=== PATIENT | female | born 1965 | race Caucasian/White ===

== ENCOUNTER → 2019-11-10 | Outpatient (CLI) | payer OTHER, SELFPAY ==
--- NOTE | 2019-11-10 16:48 | CT_ITS ---
STUDY: CT ABDOMEN AND PELVIS WITHOUT CONTRAST REASON FOR EXAM: Female, 54 years old. RT FLANK PAIN. Hx of kidney stones with basket extraction and lithotripsy. Prior cholecystectomy and uterine ablation RADIATION DOSAGE (If Supplied By Facility): CTDIvol = ( 13.31 ) mGy, DLP = ( 616.19 ) mGycm TECHNIQUE: Transaxial images were obtained from the dome of the diaphragm to the symphysis pubis without oral contrast, and without intravenous contrast. Sagittal and coronal images were reconstructed. Individualized dose optimization techniques were used for this CT. COMPARISON: None. FINDINGS: The visualized lung bases are unremarkable. The visualized portions of the heart are within normal limits. No hepatic masses There are surgical clips in the gallbladder fossa consistent with a prior cholecystectomy. There are multiple benign calcified granulomata of the spleen and liver. Normal pancreas. Normal bilateral adrenal glands. Normal right kidney. There are 2 punctate calcifications of the left kidney (image 45, 48 of series 1002) measuring 1-2 mm. No ureteral calculi. No hydronephrosis. Normal visualized stomach. Normal small intestine. There are multiple colonic diverticula consistent with diverticulosis. There is non-visualization of the appendix. Normal abdominal aorta. Normal inferior vena cava. Normal retroperitoneum. Nondistended urinary bladder. Normal visualized uterus. Normal abdominal wall. Normal osseous structures. CT/Abdomen/Pelvis without Cont IMPRESSION: 1. Punctate left nephrolithiasis without hydronephrosis or ureteral calculi. 2. Additional chronic changes, none of which require additional imaging follow-up, as above Electronically Signed: Kin Smith MD (Brooks) at 16:01 EDT , Service support ,
== END | disposition home or self-care (01) ==
LOC: CT 16:45
PROVIDERS: PCP Family Medicine; Referring Provider Urology; Visit Provider Urology
DX: N20.0 Calculus of kidney (principal); R10.9 Unspecified abdominal pain
CPT/HCPCS: 74176

== ENCOUNTER → 2022-09-11 | Outpatient (CLI) | payer OTHER, SELFPAY ==
--- NOTE | 2022-09-11 16:11 | US_ITS ---
STUDY: RENAL ULTRASOUND - COMPLETE REASON FOR EXAM: Female, 57 years old. Pelviectasis. No hydronephrosis. TECHNIQUE: Ultrasound evaluation of the kidneys was performed with real-time and static miller-scale imaging. COMPARISON: CT of the abdomen and pelvis, November 10, 2019. FINDINGS: RIGHT KIDNEY: Normal location of the right kidney, which is normal in size. The right kidney measures 11.3 cm. There is a normal cortex of the right kidney. The renal cortex measures 1.1 cm. There is no right renal mass or cyst. There are no right renal calculi. There is no right hydronephrosis. DISTAL RIGHT URETER: There is non-visualization of the distal right ureter. There is no demonstrated right ureterovesical junction calculus. There is no demonstrated right ureteral jet. LEFT KIDNEY: Normal location of the left kidney, which is normal in size. The left kidney measures 10.7 cm. There is a normal cortex of the left kidney. The renal cortex measures 1.1 cm. There is a parapelvic cyst measuring 1.1 x 1.7 x 1.3 cm. There are no left renal calculi. There is no left hydronephrosis. DISTAL LEFT URETER: There is non-visualization of the distal left ureter. There is no demonstrated left ureterovesical junction calculus. There is a visualized left ureteral jet. BLADDER: The distended urinary bladder has a volume of 60 ml. There is a normal wall thickness of the distended urinary bladder. There is no demonstrated mass within the urinary bladder. There are no demonstrated bladder calculi. US/Kidney and Bladder IMPRESSION: 1. Left parapelvic renal cyst. 2. Otherwise normal retroperitoneal ultrasound. Electronically Signed: Alfredo Brennan DO at 22:50 EST ,
== END | disposition home or self-care (01) ==
LOC: US 16:06
PROVIDERS: PCP Family Medicine; Referring Provider Urology; Visit Provider Urology
DX: N28.1 Cyst of kidney, acquired (principal); N13.30 Unspecified hydronephrosis
CPT/HCPCS: 76770

== ENCOUNTER 2025-08-09 09:11 | Day surgery (SDC) | payer OTHER, SELFPAY ==
--- NOTE | 2025-08-06 16:26 | PAT.ANE_ITS ---
Pre-Assessment Diagnosis/Proposed Procedure Planned Operative Procedure(s): CYSTO, URETEROSCOPY, LASER LITHO, STONE BASKET, LEFT STENT INSERTION Anesthesia History Anesthesia History - weatherization administrator: Anesthesia History - weatherization administrator Hx Hospitalization No 08/06/25 11:51 Any Problems With Anesthesia No 08/06/25 11:51 Cholinesterase deficiency No 08/06/25 11:51 You/Your Family Experience No 08/06/25 11:51 fever (hyperthermia) with Relationship Recent Exposure to Contagious Disease Does patient have nerve No 08/06/25 11:51 stimulator Patient instructed to have device shut off --Does patient have Pacemaker or ICD? When Was Last Pacemaker Check QUESTION #4 FULL TEXT: You/Your Family Experience fever (hyperthermia) with Anesthesia Last Oral Intake Last Oral intake: Last Oral Intake NPO since Meds taken in AM with sips of water? Meds patient instructed to take am of surgery PONV PONV - weatherization administrator: PONV - weatherization administrator Female Yes 08/06/25 11:51 HX of Motion Sickness Yes 08/06/25 11:51 HX of N/V After Surgery Yes 08/06/25 11:51 Non-Smoker Yes 08/06/25 11:51 Duration of Surgery greater No 08/06/25 11:51 than 60 minutes Number of Risk Factors 4 08/06/25 11:51 PONV Score Severe Risk 08/06/25 11:51 Height & Weight Height & Weight: Anesthesia: Height & Weight Height 5 ft 3 in 08/01/25 15:49 Respiratory Assessment Respiratory Assessment - weatherization administrator: Respiratory Tract Infection Hx - weatherization administrator Hx Respiratory Tract Infection No 08/06/25 11:51 STOP Sleep Apnea STOP Sleep Apnea - weatherization administrator: STOP Sleep Apnea - weatherization administrator Hx Hypertension No 08/06/25 11:51 Hx Sleep Apnea No 08/06/25 11:51 CPAP BIPAP Do you snore loudly (louder No 08/06/25 11:51 than talking or can be heard Do you often feel tired/ No 08/06/25 11:51 fatigued/ sleepy during daytime? Has anyone observed you stop No 08/06/25 11:51 breathing during sleep? STOP Results Negative 08/06/25 11:51 QUESTION #5 FULL TEXT : Do you snore loudly (louder than talking or can be heard through closed doors)? 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 Specify any problems Hx of Preganancy in last 3 No 08/06/25 11:51 Months Nurse Filling Out Transfusion VLEHMAN 08/06/25 11:51 & Questions: Date: 08/06/25 08/06/25 11:51 Time: 12:00 08/06/25 11:51 Patient unable to answer at this time (ie. confused, unrespo /Reproduction History /Reproductive History - weatherization administrator: /Reproductive Hx- weatherization administrator Hx Now No 08/06/25 11:51 Gestational Age (in weeks): EDC: Hx Hx Para Hx Section SAB No 08/06/25 11:51 Does the father of the baby or his family experience fever w Father of the baby Malignant Hypertension history comment [facility] Medical History (Updated 08/06/25 @ 11:59 by Judi Abrams) Wears glasses Prediabetes History of renal disease Fatty liver Restless legs Migraine headache Difficulty swallowing History of stress test Cardiac murmur Kidney stones IBS (irritable bowel syndrome) Hypertension Headache GI problem Breast lump UTI (urinary tract infection) Asthma Arthritis Anemia Allergies Home Medications ?Medication ?Instructions ?Recorded ?Last Taken ?Type coenzyme Q10 100 mg capsule 100 mg PO DAILY 08/01/25 U nknown History lions main 1 tab PO DAILY 08/01/25 Unkn own History liver enhancer 2 tab PO DAILY 08/01/25 Unkn own History metformin 500 mg tablet 500 mg PO DAILY 08/01/25 Unk nown History oxycodone-acetaminophen 5 mg-325 1 tab PO TID PRN pain 2 weeks #20 08/01/25 Unknown Rx mg tablet (Percocet) tabs meloxicam 7.5 mg tablet 7.5 mg PO DAILY 08/06/25 Unk nown History ondansetron 4 mg disintegrating 4 mg PO Q8 PRN nausea 08/06/25 Unknown History tablet tamsulosin 0.4 mg capsule 0.4 mg PO DAILY 08/06/25 Unk nown History Allergy/AdvReac Type Severity Reaction Status Date / Time aspirin Allergy unknown Verified 08/06/25 11:48 bee venom protein (honey Allergy unknown Verified 08/06/25 11:48 bee) (bee sting) Fish Containing Products Allergy unknown Verified 08/06/25 11:48 (seafood) iodine Allergy unknown Verified 08/06/25 11:48 phenytoin (From Dilantin) Allergy unknown Verified 08/06/25 11:48 Family History (Updated 08/01/25 @ 15:58 by Carmen Rogers) Other Anesthesia complication Arthritis CVA (cerebral vascular accident) Cancer Diabetes High cholesterol Hypertension Myocardial infarction Skin cancer Surgical History (Updated 08/06/25 @ 11:59 by Judi Abrams) History of Radames fundoplication H/O hernia repair History of cholecystectomy H/O knee surgery H/O lithotripsy Social History (Updated 08/01/25 @ 15:59 by Carmen Rogers) Smoking Status: Never smoker alcohol intake: current substance use type: does not use what type of physical activity do you participate in: other frequency: other duration: other do you feel safe at home: Yes Audit: Pertinent Findings Pertinent Findings EKG Perinent findings: 10/30/2022. Normal sinus rhythm 61 bpm. Voltage criteria for left ventricular hypertrophy. Echo (EF%) pertinent findings: 06/03/2022. EF 60%. Normal size . Mild aortic valve regurgitation. Recommendation Anesthesia Recommendation Anesthesia recommendation: OPTIMIZED for anesthesia
[2025-08-09] VITALS (12 sets, daily range): BP systolic 146–158; BP diastolic 87–99; PULSE 68–80; RESP 14–16; TEMP 36.3–36.6; O2SAT 90–99; BMI 32.4
[2025-08-09 09:44] LABS: Hematocrit 40.8 % (37-47); Hemoglobin 13.6 g/dL (12.0-15.0); Mean Corp Hgb Conc 33.3 g/dL (32-36); Mean Corpuscular Volume 85.2 fL (81-99); Mean Platelet Vol. 10.0 fl (6.2-12.0); Platelet Count 315 K/mm3 (150-450); RBC Distribution Width CV 13.3 % (11.6-14.6); RBC Distribution Width SD 41.6 fl (35.1-43.9); Red Blood Count 4.79 M/mm3 (4.2-5.4); White Blood Count 8.8 K/mm3 (4.4-11.0)
[2025-08-09] MEDS: Lactated Ringers 1,000 ML 15 ML IV (09:50)
--- NOTE | 2025-08-09 10:17 | PRE.ANES_ITS ---
ASA Classification* ASA Classification ASA Classification: 2 Assessment & Plan Anesthesia* Anesthesia Assessment Anesthesia Assessment: Discussed sedation and/or anesthesia options, risks, benefits, and alternatives with patient/parents/legal guardian/POA. Questions invited. The patient/parents/legal guardian/POA seems to understand and agrees to proceed with anesthesia plan. Reviewed the physical assessment, medical history, allergy history and patient home medications list prior to surgery/procedure/anesthetic and documented any changes. Performed airway and anesthesia risk assessments. Anesthesia Type Anesthesia Type: General History Source History Obtained from:: Patient and Chart Anesthesia Focused Assessment* Temperature: 97.5 F Pulse Rate: 68 Respiratory Rate: 16 Pulse Ox: 99 Oxygen Delivery Method: Room Air Airway Assessment Mouth opens: >3 cm Mallampati Score: IV Teeth Condition: Intact Neck Range of motion (ROM): Limited ROM (Slight Decrease) Labs Anesthesia Preop lab: CBC WBC, (4.4-11.0) 8.8 K/mm3 Today, 09:31 RBC, (4.2-5.4) 4.79 M/mm3 Today, 09:31 Hgb, (12.0-15.0) 13.6 g/dL Today, 09:31 Hct, (37-47) 40.8 % Today, 09:31 Plt Count, (150-450) 315 K/mm3 Today, 09:31 CHEMISTRY Potassium, (3.3-5.1) 4.1 mmol/L Today, 09:31 Sodium, (133-145) 139 mmol/L Today, 09:31 BUN, (4-19) 15 mg/dL Today, 09:31 Creatinine, (0.70-1.20) 0.65 mg/dL L Today, 09:31 Glucose, (70-99) 92 mg/dL Today, 09:31 COAG Pre-Assessment Diagnosis/Proposed Procedure Planned Operative Procedure(s): CYSTO, URETEROSCOPY, LASER LITHO, STONE BASKET, LEFT STENT INSERTION Anesthesia History Anesthesia History - orthotics technician: Anesthesia History - orthotics technician Hx Hospitalization No 08/06/25 11:51 Any Problems With Anesthesia No 08/06/25 11:51 Cholinesterase deficiency No 08/06/25 11:51 You/Your Family Experience No 08/06/25 11:51 fever (hyperthermia) with Relationship Recent Exposure to Contagious Disease Does patient have nerve No 08/06/25 11:51 stimulator Patient instructed to have device shut off --Does patient have Pacemaker No 08/09/25 09:41 or ICD? When Was Last Pacemaker Check QUESTION #4 FULL TEXT: You/Your Family Experience fever (hyperthermia) with Anesthesia Last Oral Intake Last Oral intake: Last Oral Intake NPO since 22:00 08/09/25 09:41 Meds taken in AM with sips of No 08/09/25 09:41 water? Meds patient instructed to take am of surgery PONV PONV - orthotics technician: PONV - orthotics technician Female Yes 08/06/25 11:51 HX of Motion Sickness Yes 08/06/25 11:51 HX of N/V After Surgery Yes 08/06/25 11:51 Non-Smoker Yes 08/06/25 11:51 Duration of Surgery greater No 08/06/25 11:51 than 60 minutes Number of Risk Factors 4 08/06/25 11:51 PONV Score Severe Risk 08/06/25 11:51 Height & Weight Height & Weight: Anesthesia: Height & Weight Height 5 ft 3 in 08/09/25 09:41 Weight: 83 kg 08/09/25 09:41 Body Mass Index (BMI) 32.4 08/09/25 09:41 Respiratory Assessment Respiratory Assessment - orthotics technician: Respiratory Tract Infection Hx - orthotics technician Hx Respiratory Tract Infection No 08/06/25 11:51 STOP Sleep Apnea STOP Sleep Apnea - orthotics technician: STOP Sleep Apnea - orthotics technician Hx Hypertension No 08/06/25 11:51 Hx Sleep Apnea No 08/06/25 11:51 CPAP BIPAP Do you snore loudly (louder No 08/06/25 11:51 than talking or can be heard Do you often feel tired/ No 08/06/25 11:51 fatigued/ sleepy during daytime? Has anyone observed you stop No 08/06/25 11:51 breathing during sleep? STOP Results Negative 08/06/25 11:51 QUESTION #5 FULL TEXT : Do you snore loudly (louder than talking or can be heard through closed doors)? 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 Specify any problems Hx of Preganancy in last 3 No 08/06/25 11:51 Months Nurse Filling Out Transfusion VLEHWAKARUSA 08/06/25 11:51 & Questions: Date: 08/06/25 08/06/25 11:51 Time: 12:00 08/06/25 11:51 Patient unable to answer at this time (ie. confused, unrespo /Reproduction History /Reproductive History - orthotics technician: /Reproductive Hx- orthotics technician Hx Now No 08/06/25 11:51 Gestational Age (in weeks): EDC: Hx Hx Para Hx Section SAB No 08/06/25 11:51 Does the father of the baby or his family experience fever w Father of the baby Malignant Hypertension history comment Active Medications Active Medications: Current Medications Generic Name Dose Route Start Last Admin Trade Name Freq PRN Reason Stop Dose Admin Lactated Ringer's 1,000 mls @ 15 mls/hr 08/09/25 09:30 08/09/25 09:50 IV 15 mls/hr .Q48H DIMA Administration PFSH Medical History Wears glasses Prediabetes History of renal disease Fatty liver Restless legs Migraine headache Difficulty swallowing History of stress test Cardiac murmur Kidney stones IBS (irritable bowel syndrome) Hypertension Headache GI problem Breast lump UTI (urinary tract infection) Asthma Arthritis Anemia Allergies Home Medications ?Medication ?Instructions ?Recorded ?Last Taken ?Type coenzyme Q10 100 mg capsule 100 mg PO DAILY 08/01/25 U nknown History lions main 1 tab PO DAILY 08/01/25 Unkn own History liver enhancer 2 tab PO DAILY 08/01/25 Unkn own History metformin 500 mg tablet 500 mg PO DAILY 08/01/25 Unk nown History oxycodone-acetaminophen 5 mg-325 1 tab PO TID PRN pain 2 weeks #20 08/01/25 Unknown Rx mg tablet (Percocet) tabs meloxicam 7.5 mg tablet 7.5 mg PO DAILY 08/06/25 Unk nown History ondansetron 4 mg disintegrating 4 mg PO Q8 PRN nausea 08/06/25 Unknown History tablet tamsulosin 0.4 mg capsule 0.4 mg PO DAILY 08/06/25 Unk nown History Allergy/AdvReac Type Severity Reaction Status Date / Time aspirin Allergy unknown Verified 08/09/25 09:39 bee venom protein (honey Allergy unknown Verified 08/09/25 09:39 bee) (bee sting) Fish Containing Products Allergy unknown Verified 08/09/25 09:39 (seafood) iodine Allergy unknown Verified 08/09/25 09:39 phenytoin (From Dilantin) Allergy unknown Verified 08/09/25 09:39 Family History Other Anesthesia complication Arthritis CVA (cerebral vascular accident) Cancer Diabetes High cholesterol Hypertension Myocardial infarction Skin cancer Surgical History History of Radames fundoplication H/O hernia repair History of cholecystectomy H/O knee surgery H/O lithotripsy Social History Smoking Status: Never smoker alcohol intake: current substance use type: does not use what type of physical activity do you participate in: other frequency: other duration: other do you feel safe at home: Yes Review of Systems (Anesthesia) ROS Narrative System reviewed and no additional complaints, except as documented. Physical Exam Resp clear to auscultation bilaterally
[2025-08-09 10:23] LABS: Anion Gap 13 (5-15); BUN 15 mg/dL (4-19); BUN/Creat Ratio 22.5 RATIO (10-20); Calcium,Total 9.7 mg/dL (7.6-11.0); Carbon Dioxide 22.1 mmol/L (21.0-32.0); Chloride 104 mmol/L (98-108); Estimated Creatinine Clearance 97.44 ml/min (50-250); Glucose 92 mg/dL (70-99); Potassium 4.1 mmol/L (3.3-5.1)
--- NOTE | 2025-08-09 10:30 | CALC_PTH ---
PATIENT: RENA JERONIMO LOC: [facility] U#:[id number] AGE/SX: 59/F ROOM: RE08/09/[address]: Dr. Monica Bhatt MD : 1965 BED: DIS: 08/09/2025 SPEC #: [id number] RECD: 08/09/25 11:59 STATUS: CYNTHIA REWilliam #: [id number] HUSAM: 08/09/25 10:[address]: Monica Bhatt DEPT: SURGICAL PATHOLOGY RECD BY: Riley Morgan ENTERED: 08/09/25 13:12 SP TYPE: Calculi OTHR DR: Dr. Liliana Quintana MD Tissues: A - CALCULI Procedures: Surgery Specimen Level I HEADER OPERATION: Cysto, ureteroscopy, left stone basket extraction, left stent PRE-OP DIAGNOSIS: Urinary tract infection, other specified disorders of bladder, frequency of urination, urgency of micturition TISSUE SUBMITTED: A- Left kidney stone GROSS DIAGNOSIS A. Left kidney stone, basket extraction: - Calculi (gross examination only). - Sent for chemical analysis. COMMENT The calculi are submitted in their entirety for chemical analysis. The results from this study will be reported separately.. GROSS DESCRIPTION A. Received fresh labeled patient's name and date of . Designated as left kidney stone are 2 irregular red to light brown calculi, 0.2 cm and 0.4 cm. No sections are submitted. The specimen is for gross examination only. The specimen is sent for stone analysis. [place] 08/09/2025 CPT:40010
--- NOTE | 2025-08-09 10:45 | HP.PCM_ITS ---
History and Physical Date of Admission: 08/09/25 Date of Service: 08/01/25 MR#: [id number] Acct: [id number] Name: RENA JERONIMO Rep #: [id number] : [id number] Provider: Dr. Monica Bhatt MD Age/Sex: 59/F Location: [facility] [email or web address] Status: Signed Intake Vital Signs 08/01/2515:49 Height 5 ft 3 in Weight: 178 lb BMI 31.5 BP 138/92 H Pulse 72 Intake Visit Reasons: left 0.3cm stone Chief Complaint: new patient- left 0.3cm stone, History & Physical preop Tile Classifier Required: No Accompanied by: self Is patient in pain?: No Allergies aspirin Allergy (Verified 08/01/25 15:53) unknown bee venom protein (honey bee) (bee sting) Allergy (Verified 08/01/25 15:46) unknown Fish Containing Products (seafood) Allergy (Verified 08/01/25 15:53) unknown iodine Allergy (Verified 08/01/25 15:53) unknown phenytoin (From Dilantin) Allergy (Verified 08/01/25 15:53) unknown Medications ?Medication ?Instructions ?Recorded ?Confirmed ?Type coenzyme Q10 100 mg capsule 100 mg PO DAILY 08/01/25 08/01/25 Histor y lions main PO 08/01/25 History liver enhancer PO 08/01/25 08/01/25 History metformin 500 mg tablet 500 mg PO DAILY 08/01/25 08/01/25 Histor y oxycodone-acetaminophen 5 mg-325 1 tab PO TID PRN pain 2 weeks #20 08/01/25 Rx mg tablet (Percocet) tabs Medication Reconciliation completed?: Yes Nurse's Note: pain on and off in her left side denies UTI sx today Bladder scan PVR 64cc PFSH Medical History (Updated 08/01/25 @ 23:[address] Monica Bhatt MD) Cardiac murmur Kidney stones IBS (irritable bowel syndrome) Hypertension Headache GI problem Breast lump UTI (urinary tract infection) Asthma Arthritis Anemia Allergies Surgical History (Updated 08/01/25 @ 15:57 by Carmen Rogers) H/O hernia repair History of cholecystectomy H/O knee surgery H/O lithotripsy Family History (Updated 08/01/25 @ 15:58 by Carmen Rogers) Other Anesthesia complication Arthritis CVA (cerebral vascular accident) Cancer Diabetes High cholesterol Hypertension Myocardial infarction Skin cancer Social History (Updated 08/01/25 @ 15:59 by Carmen Rogers) Smoking Status: Never smoker alcohol intake: current substance use type: does not use what type of physical activity do you participate in: other frequency: other duration: other do you feel safe at home: Yes HPI HPI Urology Chief Complaint: new patient- left 0.3cm stone, History & Physical preop Details: RENA JERONIMO, is a 59 F. She is here for evaluation and management of left ureteral and kidney stones. She has had several surgeries for stones in the past. This is the 10th stone and all but 2 have required surgical intervention. She was seen in the ER on 07/12 with pain. She was seen about an hour after the pain started. She is continuing to have pain even now. There are hot flashes, not really sure about fever and chills. No nausea or vomiting. The pain is worse whenever the stone decides to move. It hits in waves. It is on the left side. Occasional pink tinged urine. She had grossly bloody urine when she was seen in the ER. She has had 2 stents previously. The first one was complex as she was out of town and she had a string on it. The second stent was a better situation. She has had a 24hr UA, we will get results. Not on any anticoagulation. ROS Const Constitutional: No chills, fatigue, fever(s), headache(s), night sweats, weakness, weight change, abnormal sleep pattern or change in appetite Eyes Eyes: No change in vision ENT ENT: No headache(s) or dry mouth Resp Respiratory: No cough, chest congestion, shortness of breath or wheezing Cardio Cardiology: Positive for other (No chest pain.); No shortness of breath, irregular heart rhythm or lightheadedness Gastro GI: Positive for abdominal pain; No change in bowel habits, constipation, diarrhea, nausea/dyspepsia or vomiting Genitourinary-Female: Positive for blood in urine and side pain; No difficulty urinating, burning urination or painful urination Musc Musculoskeletal: Positive for back pain; No abnormal gait Skin Skin: No yellowing of the eye, lesions, itchy eyes, rash or skin ulcer Neuro Neurology: No abnormal gait, confusion, dizziness, weakness, headache(s) or memory loss Psych Psychiatric: No abnormal sleep pattern, No change in appetite, No confusion and No memory loss Endo Endocrine: No fatigue, increased thirst/drinking or weight change Aller/Imm Allergy/Immunologic: No itchy eyes or wheezing Mj/Lymp Hematologic/Lymphatic: No easy bleeding, easy bruising or enlarged lymph nodes Exam Const General: cooperative, healthy appearing, comfortable and no acute distress [facility] Head: normocephalic and atraumatic Ears: hearing grossly normal bilaterally and external ears normal Nose: external nose normal Eyes General: appearance normal, both eyes and all related structures Neck Neck: normal visual inspection and trachea midline Chest Chest palpation & inspection: normal inspection of the chest Resp Effort & Inspection: normal respiratory effort, able to speak in complete sentences and symmetric chest movement Cardio Rate: regular rate GI Inspection: normal to inspection Palpation: soft and nontender General: CVA tenderness on the left Skin General: no rashes or lesions noted Neuro General: patient alert, patient awake, patient oriented x3 and CN's II-XI intact bilaterally Extrem General: normal to inspection Psych Appearance: grossly normal and well kempt Mental Status: mental status grossly normal Results POC Urinalysis w/Micro Office Urine Color ? Last Edit by Carmen Rogers on 08/01/25 15:55 Office Urine Clarity ? Last Edit by Carmen Rogers on 08/01/25 15:55 Office Urine Glucose Negative Last Edit by Carmen Rogers on 08/01/25 15:55 Office Urine Ketones Negative Last Edit by Carmen Rogers on 08/01/25 15:55 Office Urine Bilirubin Small (1+) Last Edit by Carmen Rogers on 08/01/25 15:55 Office Urine Urobilinogen 0.2 mg/dL Last Edit by Carmen Rogers on 08/01/25 15:55 Off Ur Spec [place] 1.025 Last Edit by Carmen Rogers on 08/01/25 15:55 Office Urine pH 6 Last Edit by Carmen Rogers on 08/01/25 15:55 Office Urine Protein Positive Last Edit by Carmen Rogers on 08/01/25 15:55 Office Urine Blood Moderate Last Edit by Carmen Rogers on 08/01/25 15:55 Office Urine Blood Hemolyzed Negative Last Edit by Carmen Rogers on 5 15:55 Office Urine Nitrate Negative Last Edit by Carmen Rogers on 08/01/25 15:55 Off Ur Leukocytes Negatve Last Edit by Carmen Rogers on 08/01/25 15:55 Off Ur WBC Microscopic ? Last Edit by Carmen Rogers on 08/01/25 15:55 Off Ur RBC Microscopic ? Last Edit by Carmen Rogers on 08/01/25 15:55 Off Ur Bacteria Microscopic ? Last Edit by Carmen Rogers on 08/01/25 15:55 Coding Level of Care Code Off vis,new,level 4 Diagnoses Ureteral calculi N20.1 Kidney stones N20.0 Flank pain R10.A0 Additional Codes Intake - Is patient in pain?: No (1126F) Intake - Medication Reconciliation completed?: Yes (1160F) Assessment and Plan Assessment and Plan (1) Ureteral calculi: Status: Acute (2) Kidney stones: Status: Acute (3) Flank pain: Status: Acute Orders: Orders POC UA Automated w/Microscopy Today R82.90 - Unspecified abnormal findings in urine Medications: New oxycodone-acetaminophen 5-325 mg (Percocet) 1 TAB PO TID PRN 20 tabs 0RF pain 2 weeks N20.1 - Calculus of ureter Plan schedule for cystoscopy, left ureteroscopy, laser lithotripsy, stone basket extraction, left ureteral stent insertion The procedure, recovery and expectations were explained. The risks, benefits and alternatives were discussed, including but not limited to, the risks of anesthesia, bleeding, infection, injury, pain and the need for further intervention. A joint decision was made at this time to proceed with the scheduled surgery/procedure as indicated on the consent form. urine culture today pain control obtain results of last 24hr UA stone protocol push images from [facility] into [facility] 08/01/25 1077 <Electronically signed by Monica Bhatt MD> Date Monica Bhatt MD
--- NOTE | 2025-08-09 10:46 | EX.PCM.DISCH ---
Discharge Instructions Diet Discharge Diet: No restrictions Activity Discharge Activity: Return to Normal Activity Dressing / Incision Call your doctor if you observe: Fever of 101 or Higher, Inability to urinate and Inability to have a bowel movement Follow Up Care Please Follow Up With: Monica Bhatt MD Test Results: Test results from this visit will be discussed in further detail at your follow-up appointment, if applicable. Discharge Plan Admission Attending Provider: Monica Bhatt Primary Care Provider: Liliana Quintana Instructions Print Language: Tunisian Discharge Orders/Prescriptions Prescriptions: New phenazopyridine 200 mg tablet 200 mg PO TID PRN (Reason: pain) Qty: 30 3RF oxycodone-acetaminophen 5-325 mg tablet 1 tab PO Q8H PRN (Reason: pain) 3 Days Qty: 10 0RF Continued metformin 500 mg tablet 500 mg PO DAILY coenzyme Q10 100 mg capsule 100 mg PO DAILY lions main 1 tab PO DAILY liver enhancer 2 tab PO DAILY oxycodone-acetaminophen [Percocet] 5-325 mg tablet 1 tab PO TID PRN (Reason: pain) 14 Days Qty: 20 0RF tamsulosin 0.4 mg capsule 0.4 mg PO DAILY meloxicam 7.5 mg tablet 7.5 mg PO DAILY Patient Comments: CURRENTLY NOT TAKING ondansetron 4 mg tablet,disintegrating 4 mg PO Q8 PRN (Reason: nausea) Qty: 10 0RF Referrals / Follow Up: Liliana Quintana MD [Primary Care Provider, Medical] Disposition Disposition (needs filled in before D/C Order can be placed): Home, Self Care
[2025-08-09] MEDS: Midazolam 2 MG/2 ML Syringe IV (10:50)
[2025-08-09] MEDS: Cefazolin 1 GM/5 ML Vial 2 GM IV (10:50)
[2025-08-09] MEDS: Lidocaine 1% (5 ml sdv) 5 ML Vial IV (10:55)
[2025-08-09] MEDS: fentaNYL 100 MCG/2 ML Ampul IV (10:55)
--- NOTE | 2025-08-09 11:39 | OP.PCM_ITS ---
Multi Select Codes Urology Urology Charge Forwarding-multi code: 22277 Cysto w/ insert Ureteral Stent and 68212 Cysto w/ Ureteroscopy w/RMVL/Manj Stones Operative Report (Standard) Operative Information Date of Procedure: 08/09/25 Pre-Operative Diagnosis: Left ureteral and kidney stones Post-Operative Diagnosis: Same Surgery/Procedure Performed: Cystoscopy, left ureteroscopy, stone basket extraction, left ureteral stent insertion leasing representative: Yes Supervisor Intelligence Analyst: Emily Day Tasks completed by first cook: Other (Wire management) Type of Anesthesia: General RN Documented Start/Stop Times: Operation Date: 08/09/25 10:30 Case Time Into Pre-Op 08/09/25 09:22 Out of Pre-Op 08/09/25 10:49 Anesthesia Start 08/09/25 10:50 Into Room 08/09/25 10:50 Procedure Start 08/09/25 11:04 Procedure End 08/09/25 11:33 Procedure Start Time: 11:04 Procedure Stop Time: 11:33 Select all DRAINS/GRAFTS/IMPLANTS that apply: Drains Drain details: 6 Greenlandic by 24 cm JJ stent Estimated Blood Loss: <5cc Specimen collected: Yes Description of specimen(s) removed: Left kidney stone x 2 Description of surgery: The patient is a 59-year-old female with a left ureteral calculus that has been causing significant discomfort for the last several weeks. She now presents for surgical intervention. Informed consent has been obtained. The patient was taken to the operating room and placed on the operating room table. Anesthesia monitored the head, neck, airway, IV access and vital signs throughout the case. Once anesthesia was appropriately administered, she was placed into dorsolithotomy position was prepped and draped in usual sterile fashion. The cystoscope was inserted through the urethra under direct visualization into the urinary bladder. The bladder was visualized in its entirety finding no evidence of mass, erythema, ulceration or foreign body. The left ureteral orifice was cannulated with a 0.035 Glidewire which advanced easily into the renal pelvis. A semirigid ureteroscope was passed into the ureter but could not gain access to the proximal ureter. No stone was identified. A second 0.035 Glidewire was inserted. The flexible ureteroscope was placed over the wire and access to the renal pelvis was obtained. All of the calyces were directly visualized. There were some small calcifications behind the tissue which were not obtainable. There were 2 stones approximately 2 to 4 mm in size which were removed with a stone basket without difficulty. When both were removed, the ureter revealed no evidence of injury. The safety wire was utilized for placing a 6 Greenlandic 24 cm JJ stent with good positioning in the renal pelvis as well as the urinary bladder. Her bladder was emptied and the cystoscope was removed. She was awakened and taken the recovery room in good condition. There were no complications during the procedure. Surgical Findings: 2 kidney stones were removed via stone basket extraction Complications Complications: No Admit VTE Documentation VTE Present on Admission: Yes VTE Mechan Device Prophylaxis: SCD's VTE Pharm Prophylaxis ordered?: No Reason prophylaxis not ordered: Treatment Not Indicated
--- NOTE | 2025-08-09 11:52 | PCM.POST.ANE ---
Anesthesia: Postop Eval I Current Vital Signs Temperature: 97.3 F Pulse Rate: 80 Blood Pressure: 147/93 Respiratory Rate: 14 Pulse Ox: 94 Oxygen Delivery Method: Room Air Assessment Airway patent: Yes Spontaneous unlabored respirations: Yes Mental status: Awake and Calm nausea: No Vomiting: No Anesthesia Complication: No Fluid Hydration Crystalloid volume administer (ml): 700 Total IV fluid infused: 700 Progress Note Anesthesia document: Postop Eval 1 completed: Yes
--- NOTE | 2025-08-09 12:51 | POSTOPAN2_ITS ---
Anesthesia Postop Eval I Sum Postop Eval Completion status Anesthesia document: Postop Eval 1 completed: Yes Anesthesia Postop Eval I Summary Anesthesia Postop Eval I Summary: Anesthesia Postop Eval I: Assessment Summary Airway patent Yes 08/09/25 11:53 WEB MARKETING ANALYST.MDOT Spontaneous unlabored Yes 08/09/25 11:53 WEB MARKETING ANALYST.MDOT respirations Mental status Awake,Calm 08/09/25 11:53 WEB MARKETING ANALYST.MDOT nausea No 08/09/25 11:53 WEB MARKETING ANALYST.MDOT Vomiting No 08/09/25 11:53 WEB MARKETING ANALYST.MDOT Anesthesia Postop Eval I: Fluid Summary Crystalloid volume administer 700 08/09/25 11:53 WEB MARKETING ANALYST.MDOT (ml) Colloids volume administered ( ml) Blood Product volume administered (ml) Total IV fluid infused 700 08/09/25 11:53 WEB MARKETING ANALYST.MDOT Anesthesia Postop Eval I: Summary Notes Anesthesia Complication No 08/09/25 11:53 WEB MARKETING ANALYST.MDOT Anesthesia Complication Comment: Post-operative progress note Anesthesia: Postop Eval II Evaluation Mental status: Awake Pain Level: 2 nausea: No Vomiting: No
--- NOTE | 2025-08-09 12:51 | PCM.POSTANE2 ---
Anesthesia Postop Eval I Sum Postop Eval Completion status Anesthesia document: Postop Eval 1 completed: Yes Anesthesia Postop Eval I Summary Anesthesia Postop Eval I Summary: Anesthesia Postop Eval I: Assessment Summary Airway patent Yes 08/09/25 11:53 GRILL ASSOCIATE.MDOT Spontaneous unlabored Yes 08/09/25 11:53 GRILL ASSOCIATE.MDOT respirations Mental status Awake,Calm 08/09/25 11:53 GRILL ASSOCIATE.MDOT nausea No 08/09/25 11:53 GRILL ASSOCIATE.MDOT Vomiting No 08/09/25 11:53 GRILL ASSOCIATE.MDOT Anesthesia Postop Eval I: Fluid Summary Crystalloid volume administer 700 08/09/25 11:53 GRILL ASSOCIATE.MDOT (ml) Colloids volume administered ( ml) Blood Product volume administered (ml) Total IV fluid infused 700 08/09/25 11:53 GRILL ASSOCIATE.MDOT Anesthesia Postop Eval I: Summary Notes Anesthesia Complication No 08/09/25 11:53 GRILL ASSOCIATE.MDOT Anesthesia Complication Comment: Post-operative progress note Anesthesia: Postop Eval II Evaluation Mental status: Awake Pain Level: 2 nausea: No Vomiting: No
[2025-08-20 12:08] LABS: Ca Oxalate, Dihydrate 70 % (.); Ca Oxalate, Monohydrate 20 % (.)
== END 2025-08-09 14:41 | disposition home or self-care (01) ==
LOC: SDC 09:11 → AC 09:12
PROVIDERS: PCP Family Medicine; Referring Provider Urology; Visit Provider Urology
PROC: 0TJ98ZZ Inspection of Ureter, Via Natural or Artificial Opening Endoscopic (ICD-10-PCS; CPT 52352; principal; 2025-08-09 10:15)
DX: N20.0 Calculus of kidney (principal); I10 Essential (primary) hypertension; R82.90 Unspecified abnormal findings in urine; Z90.49 Acquired absence of other specified parts of digestive tract; Z87.442 Personal history of urinary calculi; Z87.440 Personal history of urinary (tract) infections
CPT/HCPCS: 52332; 52352; 00918; 76000; 80048; 82360; 85027; 88300; C1769; C2617; J2405